=== PATIENT | female | born 1965 | race Asian ===

== ENCOUNTER 2021-10-22 16:35 | Outpatient (CLI) | payer OTHER | END 2021-10-22 19:26 | disposition home or self-care (01) | LOC: RAD 16:35 | PROVIDERS: ATTEND Internal Medicine Rheumatology | DX: M06.4 Inflammatory polyarthropathy (principal) ==

== ENCOUNTER 2021-12-18 12:04 | Emergency (ER) | payer OTHER ==
[~2021-12-18] VITALS: Ht 180.3 cm; Wt 111.1 kg
[2021-12-18 12:10] VITALS: BP 146/82; TEMP 97.2
== END 2021-12-18 13:08 | disposition home or self-care (01) ==
LOC: ED 12:04
DX: J06.9 Acute upper respiratory infection, unspecified (principal); H61.21 Impacted cerumen, right ear
CPT/HCPCS: 96372; 99283; J0696

== ENCOUNTER 2022-01-05 16:02 | Emergency (ER) | payer OTHER ==
[~2022-01-05] VITALS: Ht 180.3 cm; Wt 111.1 kg
[2022-01-05 16:30] VITALS: BP 128/81; TEMP 97.9
== END 2022-01-05 18:00 | disposition home or self-care (01) ==
LOC: ED 16:02
DX: S39.012A Strain of muscle, fascia and tendon of lower back, initial encounter (principal); W01.0XXA Fall on same level from slipping, tripping and stumbling without subsequent striking against object, initial encounter; Y92.811 Bus as the place of occurrence of the external cause
CPT/HCPCS: 99282

== ENCOUNTER 2022-04-03 16:47 | Emergency (ER) | payer OTHER ==
[~2022-04-03] VITALS: Ht 180.3 cm; Wt 111.1 kg
[2022-04-03 16:55] VITALS: BP 145/75; TEMP 98.2
== END 2022-04-03 17:35 | disposition home or self-care (01) ==
LOC: ED 16:47
DX: J02.9 Acute pharyngitis, unspecified (principal)
CPT/HCPCS: 96372; 99282; J1100

== ENCOUNTER 2022-08-04 10:54 | Emergency (ER) | payer OTHER ==
[~2022-08-04] VITALS: Ht 180.3 cm; Wt 111.1 kg
[2022-08-04 12:25] VITALS: BP 118/75; TEMP 97.9
== END 2022-08-04 12:30 | disposition home or self-care (01) ==
LOC: ED 10:54
DX: M25.561 Pain in right knee (principal)
CPT/HCPCS: 99282

== ENCOUNTER 2022-08-29 13:41 | Emergency (ER) | payer OTHER ==
[~2022-08-29] VITALS: Ht 180.3 cm; Wt 111.1 kg
[2022-08-29 13:43] VITALS: BP 148/71; TEMP 99
== END 2022-08-29 15:06 | disposition home or self-care (01) ==
LOC: ED 13:41
DX: S40.862A Insect bite (nonvenomous) of left upper arm, initial encounter (principal); W57.XXXA Bitten or stung by nonvenomous insect and other nonvenomous arthropods, initial encounter
CPT/HCPCS: 99281

== ENCOUNTER 2022-10-26 11:14 | Emergency (ER) | payer OTHER ==
[~2022-10-26] VITALS: Ht 180.3 cm; Wt 111.1 kg
[2022-10-26 11:35] VITALS: BP 149/80; TEMP 97.3
== END 2022-10-26 11:53 | disposition home or self-care (01) ==
LOC: ED 11:14
DX: J06.9 Acute upper respiratory infection, unspecified (principal); J32.9 Chronic sinusitis, unspecified
CPT/HCPCS: 99282

== ENCOUNTER 2022-10-26 11:56 | Outpatient (CLI) | payer OTHER | END 2022-10-26 21:56 | disposition home or self-care (01) | LOC: RAD 11:56 | PROVIDERS: ATTEND Nurse Practitioner Family | DX: M06.09 Rheumatoid arthritis without rheumatoid factor, multiple sites (principal); M06.4 Inflammatory polyarthropathy; M21.372 Foot drop, left foot; Z79.631 Long term (current) use of antimetabolite agent; Z79.891 Long term (current) use of opiate analgesic ==

== ENCOUNTER 2023-01-01 12:12 | Outpatient (CLI) | payer OTHER | END 2023-01-01 19:02 | disposition home or self-care (01) | LOC: US 12:12 | PROVIDERS: ATTEND Nurse Practitioner Family | DX: M06.09 Rheumatoid arthritis without rheumatoid factor, multiple sites (principal); M06.4 Inflammatory polyarthropathy; R70.0 Elevated erythrocyte sedimentation rate; Z79.631 Long term (current) use of antimetabolite agent; Z79.891 Long term (current) use of opiate analgesic ==